=== PATIENT | male | born 1980 | race Caucasian/White ===

== ENCOUNTER 2018-01-29 17:22 | Emergency (ER) | payer OTHER ==
[~2018-01-29] VITALS: Ht 165.1 cm; Wt 104.3 kg
[2018-01-29] MEDS ORDERED: OMEPRAZOLE20 MG (17:49)
[2018-01-29] MEDS ORDERED: PREDNISONE2.5 MG (17:49)
== END 2018-01-29 21:06 | disposition home or self-care (01) ==
LOC: ER 17:22
DX: S99.812A Other specified injuries of left ankle, initial encounter (principal); M25.572 Pain in left ankle and joints of left foot; W01.0XXA Fall on same level from slipping, tripping and stumbling without subsequent striking against object, initial encounter; Y93.89 Activity, other specified; Y92.89 Other specified places as the place of occurrence of the external cause; Y99.8 Other external cause status